=== PATIENT | male | born 1975 | race Caucasian/White ===

== ENCOUNTER 2021-10-25 10:08 | Emergency (ER) | payer OTHER, SELFPAY ==
--- NOTE | 2021-10-25 10:18 | ED.URI ---
HPI - URI/Sore Throat General Chief Complaint: Upper Respiratory Infection Stated Complaint: Cough Time Seen by Provider: 10/25/21 10:27 Source: patient, RN notes reviewed and old records reviewed Mode of arrival: ambulatory Limitations: no limitations History of Present Illness HPI Narrative: 46 year old male who presents to [facility] care with complaints of sore throat, cough with green yellow sputum, low grade fevers for the past 5 days. patient states that he noticed some wheezing last night when he laid down to go to bed and his throat felt like it was constricted denies any shortness of breath, no tachypnea or accessory muscle use noted with patient able to speak in full sentences without difficulty. Patient states that he has not taken anything OTC for his symptoms. Patient reports that he has had COVID vaccinations and Booster and also flu shot this year and he did have COVID in April of 2021..Patient states that he took home COVID test on Thursday and this morning with results negative. MD elicited complaint: cough and sore throat Onset (ago): day(s) (5) Consistency: constant Description of mucous: yellow and green Related Data Allergies Allergy/AdvReac Type Severity Reaction Status Date / Time No Known Allergies Allergy Unverified 08/30/18 15:25 Review of Systems Review of Systems: CONSTITUTIONAL: Reports low grade fever fever, no chills, or sweats. EYES: Denies visual changes, redness, or discharge. ENT: Positive for clear rhinorrhea, congestion, positive for sore throat, no otalgia. CARDIOVASCULAR: Denies chest pain, palpitations, or edema. RESPIRATORY: Positive for cough denies dyspnea. GASTROINTESTINAL: Denies abdominal pain, nausea, vomiting, or diarrhea. GENITOURINARY: Denies dysuria or hematuria. SKIN: Denies rash or itching. MUSCULOSKELETAL: Denies back pain, joint pain, or myalgia. NEUROLOGIC: Denies headache, numbness, or weakness. PSYCHIATRIC: Denies anxiety or depression. All systems reviewed & are unremarkable except as noted in HPI and below PMFSH Past Medical History Medical History (Updated 10/25/21 @ 11:21 by Clementine Lopez NP) COVID-21 April 2021 Surgical History Surgical History (Updated 10/25/21 @ 11:22 by Clementine Lopez NP) No history of previous surgery Family History Family History (Updated 10/25/21 @ 11:23 by Clementine Lopez NP) Father Heart disease Diabetes mellitus Malignant neoplasm of prostate Grandparent Heart disease Malignant neoplasm of prostate Mother Brain aneurysm Social History Social History (Updated 10/25/21 @ 11:22 by Clementine Lopez NP) Smoking status: Never smoker Alcohol intake: current Alcohol use details: rare social Substance use: never Living arrangements: with family Gender identity (if verbalized by the patient): Male Comments At time of signature, agree with nursing past medical, surgical, social and family history. There is no relevant family history pertinent to the presenting complaint Exam Narrative: GENERAL: Well-appearing, well-nourished, pale and in no acute distress. HEAD: Normocephalic, atraumatic. EYES: PERRLA and EOMI. ENT: Nares with mild redness clear rhinorrhea no epistaxis. Mucous membranes moist.TM's normal with good light reflex, throat red with no lesions or exudates no acute tonsil swelling uvula red but midline NECK: Supple. no lymphadenopathy CHEST: Clear to auscultation. No respiratory distress. cough which is productive of yellow green mucous, SAO2 99% on room air HEART: Regular rate and rhythm. No murmur heard. Normal peripheral pulses. ABDOMEN: Soft, nontender, nondistended, normal active bowel sounds. EXTREMITIES: Normal range of motion. No edema. SKIN: Warm, dry, no rash. NEURO: No focal deficits. Alert and oriented x3. Course Course Level of Care: Express Care Visit MDM - URI/Sore Throat Differential Diagnosis Differential diagnosis: Likely upper respiratory infection, sin
[2021-10-25 10:33] VITALS: BP 163/98; PULSE 88; RESP 16; TEMP 36.6; O2SAT 99
== END 2021-10-25 10:47 | disposition home or self-care (01) ==
PROVIDERS: Emergency Provider Registered Nurse
DX: J06.9 Acute upper respiratory infection, unspecified (principal); R05.9 Cough, unspecified; Z86.16 Personal history of COVID-19
CPT/HCPCS: 87081; 87880; 99213; G0463

== ENCOUNTER 2023-07-29 11:41 | Emergency (ER) | payer OTHER, SELFPAY ==
--- NOTE | ~2023-07-29 | XR_ITS ---
XR thoracic spine 3V 07/29/2023 12:29 Indication: Back pain for 5 days Procedure: 3 views thoracic spine Comparison: No prior studies for comparison. Findings: No paraspinal soft tissue abnormality. Vertebral body heights are maintained. No fracture o r traumatic malalignment. Surrounding osseous structures are unremarkable. Impression: 1: No acute abnormality of the thoracic spine. Reviewed, dictated and finalized at location B. O EQUIPMENT INSTALLER Impression: 1: No acute abnormality of the thoracic spine.
[2023-07-29 11:50] VITALS: BP 152/106; PULSE 99; RESP 16; TEMP 36.7; O2SAT 99
--- NOTE | 2023-07-29 12:10 | ED.BACK ---
HPI - Back Pain/Injury General Chief Complaint: Back Pain/Injury Stated Complaint: BACK PAIN Time Seen by Provider: 07/29/23 12:10 Source: patient Mode of arrival: ambulatory Limitations: no limitations History of Present Illness HPI Narrative: 48 y/o male presented for c/o mid back pain, onset 5 days. Denies injury or over use. States he went ice skating about one week prior to onset, and cut up boxes and felt like his back and legs were tight. Pt is able to bend over and touch toes without any increase in pain or difficulty. Pain is described as a constant ache, but has intermittent spasms. Denies pain radiating into the hips or legs, numbness, tingling, weakness of the lower extremities, or change in gait, saddle paresthesia or loss of bowel or bladder. Has improvement when taking ibuprofen. Related Data Allergies Allergy/AdvReac Type Severity Reaction Status Date / Time amoxicillin AdvReac Mild stomach Verified 07/29/23 12:00 upset Review of Systems Review of Systems: CONSTITUTIONAL: Denies body aches, fever, chills EYES: Denies visual changes CARDIOVASCULAR: Denies chest pain, palpitations, or edema. RESPIRATORY: Denies cough or dyspnea. GASTROINTESTINAL: Denies abdominal pain, nausea, vomiting, or diarrhea. SKIN: Denies rash, itching, or wounds. MUSCULOSKELETAL: reports back pain NEUROLOGIC: Denies headache, numbness, tingling, or weakness. All systems reviewed & are unremarkable except as noted in HPI and below PMFSH Past Medical History Medical History COVID-21 April 2021 Insomnia Torn ligament left knee Surgical History Surgical History No history of previous surgery Family History Family History Father Heart disease Diabetes mellitus Malignant neoplasm of prostate Anxiety Grandparent Heart disease Malignant neoplasm of prostate Mother Brain aneurysm Sibling Anxiety Social History Social History Smoking status: Never smoker Alcohol intake: current Alcohol use details: rare social Substance use: never Living arrangements: with family Gender identity (if verbalized by the patient): Male Comments At time of signature, I have reviewed and agree with nursing past medical, surgical, social and family history unless otherwise noted. Please see nursing chart for further information. There is no relevant family history pertinent to the presenting complaint Exam Narrative: GENERAL: Well-appearing NECK: Supple. full ROM CHEST: Speaks in full sentences. No respiratory distress. HEART: Regular rate and rhythm. Normal and equal peripheral pulses. MUSC: Minimal paraspinal tenderness to approx T10-12 area. No Vertebral point tenderness. BLEs with normal strength and sensation, normal range of motion endorses pain with movement. No open wounds or obvious deformity; alignment normal, pulse palpable and equal bilaterally, skin warm, dry, pink. Capillary refill less than 3 seconds. Gait steady. SKIN: Warm, dry, no rash. NEURO: Alert and oriented x3. Course Course Emergency Course: Patient is aware of diagnosis, understands and agrees to treatment plan. Anticipatory guidance given. Patient agrees to follow-up as directed and is aware of reasons to seek care at the emergency department. Portions of this record may have been created with voice recognition software Level of Care: Express Care Visit Vital Signs Vital signs: Vital Signs Temperature 98.1 F 07/29/23 11:50 Pulse Rate 99 07/29/23 11:50 Respiratory Rate 16 07/29/23 11:50 Blood Pressure 152/106 H 07/29/23 11:50 Pulse Oximetry 99 07/29/23 11:50 Oxygen Delivery Room Air 07/29/23 11:50 Temperature 98.1 F 07/29/23 11:50 Pulse Rate 99 07/29/23 11:50 Respira
== END 2023-07-29 12:54 | disposition home or self-care (01) ==
PROVIDERS: Emergency Provider Nurse Practitioner Family; PCP Internal Medicine
DX: S29.012A Strain of muscle and tendon of back wall of thorax, initial encounter (principal); X58.XXXA Exposure to other specified factors, initial encounter; Z86.16 Personal history of COVID-19
CPT/HCPCS: 72072; 99213; G0463

== ENCOUNTER 2023-08-06 08:53 | Outpatient (CLI) | payer OTHER, SELFPAY ==
[2023-08-06 18:49] LABS: Basophils Absolute Auto 0.1 K/mm3 (0.0-0.1); Basophils Percent Auto 1.1 % (0.2-1.2); Eosinophils Absolute Auto 0.1 K/mm3 (0-0.3); Hematocrit 50.4 % (42.0-52.0); Hemoglobin 16.1 g/dL (14.0-18.0); Immature Granulocyte Absolute 0.03 K/mm3 (0.00-0.031); Immature Granulocyte Percent A 0.5 % (0-0.5); Lymphocytes Percent Auto 25.8 % (18.3-44.2); Mean Corpuscular HGB Conc 31.9 g/dl (32-36); Mean Corpuscular Hemoglobin 29.1 pg (26-34); Mean Corpuscular Volume 91.1 fl (80-100); Mean Platelet Volume 11.4 fl (7.4-10.4); Monocytes Absolute Auto 0.7 K/mm3 (0.1-0.6); Neutrophils Percent Auto 60.6 % (45.5-73.1); Platelet Count Result 307 k/mm3 (150-375); Red Blood Count 5.53 M/mm3 (4.6-6.20); Red Cell Distribution Width 12.2 % (11.5-14.5); White Blood Count 6.6 K/mm3 (4.5-10.0)
[2023-08-06 21:07] LABS: Alanine Aminotransferase 18 U/L (6-50); Albumin Level 4.8 g/dL (3.5-5.1); Alkaline Phosphatase 89 U/L (38-126); Anion Gap 12 mmol/L (8-16); Aspartate Amino Transferase 40 U/L (17-59); Bilirubin,Total 0.8 mg/dL (0.2-1.3); Blood Urea Nitrogen 16 mg/dL (9-20); Calcium 9.5 mg/dL (8.4-10.2); Carbon Dioxide 27 mmol/L (22-30); Chloride 100 mmol/L (98-107); Cholesterol 249 mg/dL (0-200); Estimated Glomerular Filt Rate > 60; Glucose 70 mg/dL (65-110); HDL Direct 49 mg/dL; Potassium 4.5 mmol/L (3.4-5.0); Sodium 139 mmol/L (137-145); Triglycerides 165 mg/dL (<150)
[2023-08-06 21:18] LABS: LDL Cholesterol Direct 130 mg/dL
== END 2023-08-06 08:54 | disposition home or self-care (01) ==
LOC: ANHGOSHLAB 08:55
PROVIDERS: PCP Internal Medicine; Visit Provider Nurse Practitioner
DX: Z13.220 Encounter for screening for lipoid disorders (principal); F41.9 Anxiety disorder, unspecified; Z13.29 Encounter for screening for other suspected endocrine disorder
CPT/HCPCS: 36415; 80053; 80061; 84443; 85025

== ENCOUNTER 2024-01-13 12:48 | Outpatient (CLI) | payer OTHER, SELFPAY ==
--- NOTE | ~2024-01-13 | US_ITS ---
Left soft tissue neck ultrasound (Doppler ultrasound interrogation techniques used as needed for this exam.) Ordering provider: Yara Dorado NP History: . M54.2 - Cervicalgia . Comparison: None. FINDINGS/impression: No masses seen in the area of concern. Reviewed, dictated and finalized at location A.
== END 2024-01-13 12:49 ==
LOC: GOSHIMG 12:52
PROVIDERS: PCP Nurse Practitioner; Visit Provider Nurse Practitioner
DX: M54.2 Cervicalgia (principal)
CPT/HCPCS: 76536

== ENCOUNTER 2024-02-10 00:29 | Day surgery (SDC) | payer OTHER, SELFPAY ==
[2024-02-09 11:34] VITALS: BMI 25.2
[2024-02-10 07:39] VITALS: BP 145/94; PULSE 71; RESP 16; TEMP 36.1; O2SAT 97; BMI 24.5
[2024-02-10] MEDS: LACTATED RINGERS 1,000 ML 150 ML IV CONT (07:51)
--- NOTE | 2024-02-10 08:35 | P.PNAN_ITS ---
Anes - Initial Pre Proc Eval Procedure: Operation Date: 02/10/24 09:00 Proposed Procedures p Esophagogastroduodenoscopy - Rosalino Corea MD Date/Time: 02/10/24 08:35 Surgeon: Rosalino Corea MD Pre Op Diagnosis: GERD Patient Data Age: 48 Gender: M Height: 1.78 m Weight: 77.6 kg Last Vital Signs Temp 97 F L 02/10/24 07:39 Pulse 71 02/10/24 07:39 Resp 16 02/10/24 07:39 BP 145/94 H 02/10/24 07:39 Pulse Ox 97 02/10/24 07:39 O2 Del Method Room Air 02/10/24 07:39 Allergies Allergy/AdvReac Type Severity Reaction Status Date / Time amoxicillin AdvReac Mild stomach Verified 02/10/24 07:38 upset Home Medications Medication Instructions Recorded Confirmed Type alprazolam 0.25 mg tablet (Xanax) 0.25 mg PO DAILY PRN anxiety #15 08/11/23 02/10/24 Rx tabs Patient hx anesthesia problems: none Family hx anesthesia problems: none Results Review: All pre-operative results and documents have been reviewed as part of the pre- operative evaluation. [facility] Past Medical History Medical History COVID-21 April 2021 Hyperlipidemia Insomnia Torn ligament left knee Surgical History Surgical History No history of previous surgery Family History Family History Father Heart disease Diabetes mellitus Malignant neoplasm of prostate Anxiety Grandparent Heart disease Malignant neoplasm of prostate Mother Brain aneurysm Sibling Anxiety Social History Social History Smoking status: Never smoker Alcohol intake: current Alcohol use details: rare social Substance use: never Lack of Transportation: No Lack of Food: Never True Current Housing: I Have Housing Concerned About Future Housing: No Difficulty Paying Gas/Electric Bills: No Difficulty Paying for Meds: No Currently Unemployed: No Education: Bachelor's Degree Difficulty w/ Childcare or Family Care: No Living arrangements: with family Gender identity (if verbalized by the patient): Male Spiritual care concerns: No Anes - Eval Final PreProcedure Day of Procedure 02/10/24 08:35 Patient weight: normal Heart: regular rate and rhythm Lungs: clear to auscultation Airway: Mallampati scale class II Neurological: alert and oriented Last oral intake: >/= 8 hours ASA classification: II Emergent: no Anesthetic plan: proceed Anesthesia type and monitoring: general GIVS and standard monitoring Results Review: All pre-operative results and documents have been reviewed as part of the pre- operative evaluation. Informed Consent: The patient's anesthetic plan and its attendant risks and benefits were discussed with the patient/family/POA. Questions were solicited and answers provided to the satisfaction of the patient/family/POA.
--- NOTE | 2024-02-10 08:42 | PM.HPGS ---
History of Present Illness History of Present Illness Consent: Risks, benefits, and alternatives have been discussed and questions answered. Patient agrees to proceed with procedure. Chief complaint: GERD Narrative: Robby Weems is a 48 year old male with gerd and indigestion for 1 month, just recently started omeprazole with some help. Also bloating for longer, never had egd Review of Systems Review of Systems: All systems reviewed & are unremarkable except as noted in HPI and below PMFSH Past Medical History Medical History COVID-21 April 2021 Hyperlipidemia Insomnia Torn ligament left knee Surgical History Surgical History No history of previous surgery Family History Family History Father Heart disease Diabetes mellitus Malignant neoplasm of prostate Anxiety Grandparent Heart disease Malignant neoplasm of prostate Mother Brain aneurysm Sibling Anxiety Social History Social History Smoking status: Never smoker Alcohol intake: current Alcohol use details: rare social Substance use: never Lack of Transportation: No Lack of Food: Never True Current Housing: I Have Housing Concerned About Future Housing: No Difficulty Paying Gas/Electric Bills: No Difficulty Paying for Meds: No Currently Unemployed: No Education: Bachelor's Degree Difficulty w/ Childcare or Family Care: No Living arrangements: with family Gender identity (if verbalized by the patient): Male Spiritual care concerns: No Meds Home Medications and Allergies Home Medications Medication Instructions Recorded Confirmed Type alprazolam 0.25 mg tablet (Xanax) 0.25 mg PO DAILY PRN anxiety #15 08/11/23 02/10/24 Rx tabs Allergies Allergy/AdvReac Type Severity Reaction Status Date / Time amoxicillin AdvReac Mild stomach Verified 02/10/24 07:38 upset Vital Signs Vital Signs - 24 hr 02/10/24 07:39 Temperature 97 F L Pulse Rate 71 Respiratory Rate 16 Blood Pressure 145/94 H Pulse Oximetry 97 Oxygen Delivery Room Air Exam Const: General: comfortable and no acute distress HENMT: Face/Nose/Sinus: Normal nares present Eyes: General: appearance normal, both eyes and all related structures Neck: Neck: no JVD Resp: Auscultation: clear to auscultation bilaterally Cardio: Rate: regular rate Rhythm: regular rhythm GI: Inspection: non-distended GI Palp: Yes Soft to palpation Skin: General skin exam: normal color Neuro: General: gait normal Speech: normal speech Extrem: General: normal to inspection Psych: Mental Status: mental status grossly normal Assessment and Plan Assessment and plan (1) GERD (gastroesophageal reflux disease): Qualifiers: Esophagitis presence: without esophagitis Qualified Code(s): K21.9 - Gastro-esophageal reflux disease without esophagitis Code(s): K21.9 - Gastro-esophageal reflux disease without esophagitis Status: Acute Assessment and Plan: egd with bx
[2024-02-10] MEDS: BENZOCAINE (*SP) 60 ML SPRAY CAN (HURRICAINE) 1 SPRAY MUCOUS MEM (08:48)
[2024-02-10 08:55] VITALS: BP 109/74; PULSE 61; RESP 23; O2SAT 97
[2024-02-10 09:05] VITALS: BP 142/100; PULSE 73; RESP 14; O2SAT 99
[2024-02-10 09:15] VITALS: BP 131/95; PULSE 70; RESP 16; O2SAT 99
== END 2024-02-10 09:30 | disposition home or self-care (01) ==
PROVIDERS: PCP Nurse Practitioner; Referring Provider Clinical Nurse Specialist; Visit Provider Internal Medicine Gastroenterology
PROC: 0DJ08ZZ Inspection of Upper Intestinal Tract, Via Natural or Artificial Opening Endoscopic (ICD-10-PCS; CPT 43235; principal; 2024-02-10 09:00)
DX: K21.9 Gastro-esophageal reflux disease without esophagitis (principal)
CPT/HCPCS: 43239; 88305; J2704; J7120

== ENCOUNTER 2024-02-18 16:02 | Outpatient (CLI) | payer OTHER, SELFPAY ==
[2024-02-18 20:21] LABS: Alanine Aminotransferase 32 U/L (6-50); Albumin Level 4.5 g/dL (3.5-5.1); Alkaline Phosphatase 84 U/L (38-126); Aspartate Amino Transferase 38 U/L (17-59); Bilirubin,Total 0.7 mg/dL (0.2-1.3); Lipase 101 U/L (23-300)
== END 2024-02-18 16:03 | disposition home or self-care (01) ==
LOC: ANHGOSHLAB 16:04
PROVIDERS: PCP Nurse Practitioner; Visit Provider Nurse Practitioner Family
DX: R10.13 Epigastric pain (principal); R63.4 Abnormal weight loss; R19.5 Other fecal abnormalities
CPT/HCPCS: 36415; 80076; 83690

== ENCOUNTER 2024-03-21 07:26 | Outpatient (CLI) | payer OTHER, SELFPAY ==
--- NOTE | ~2024-03-21 | XR_ITS ---
EXAMINATION: XR barium swallow w SBFT DATE: 03/21/2024 11:09 INDICATION: Epigastric pain TECHNIQUE: The patient drank thick barium, gas-producing crystals, and thin barium. Conventional supi ne abdomen radiographs and fluoroscopic spot radiographs of the hypopharynx, esophagus, stomach, and proximal small bowel were obtained. Additional overhead radiographs were obtained during the transit through the small bowel. Spot fluoroscopic images of the small bowel were obtained upon contrast yo gabe the cecum. Fluoroscopy exposure time was 2.7 minutes. Total DAP was 17.968 mGycm^2 COMPARISON: None. FINDINGS: The pharynx is symmetric and without evidence of mass lesion or mucosal irregularity. The esophagus i s normal without mass or stricture. Esophageal motility is normal. There is no hiatal hernia. There w as no gastroesophageal reflux with provocative maneuvers. The stomach and proximal small bowel are no rmal. Transit time from the stomach to proximal colon was approximately 15-30 minutes. There is normal natalee dia and mucosal fold pattern throughout the small bowel. Terminal ileum is normal. No tethering or abnormal mass effect observed upon the small bowel with real-time fluoroscopy. IMPRESSION: 1. Normal esophagram and small bowel follow-through. Reviewed, dictated and finalized at location A.
--- NOTE | ~2024-03-21 | US_ITS ---
EXAMINATION: US abdomen limited DATE: 03/21/2024 08:42 INDICATION: Epigastric pain TECHNIQUE: Multiple grayscale and Doppler ultrasound images of the abdomen were obtained. COMPARISON: None FINDINGS: The pancreatic head and body are normal in appearance. The pancreatic tail is not visualized. The vi sualized mid aorta and proximal to mid inferior vena cava are normal. Liver has normal echogenicity a nd contour, with a smooth surface. No liver lesion identified. No intrahepatic biliary duct dilation suspected. Portal venous flow was seen in the hepatopetal, normal direction and has normal Doppler wa veform. The gallbladder is normal in appearance. There is no cholelithiasis. The common bile duct me asures 4 mm, which is normal. Sonographic Sr sign was reported as negative by the carbide tool maker. IMPRESSION: 1. Normal right upper quadrant ultrasound. Reviewed, dictated and finalized at location A.
== END 2024-03-21 07:27 | disposition home or self-care (01) ==
PROVIDERS: PCP Nurse Practitioner; Visit Provider Nurse Practitioner Family
DX: K21.9 Gastro-esophageal reflux disease without esophagitis (principal); R10.13 Epigastric pain; R19.5 Other fecal abnormalities; R63.4 Abnormal weight loss
CPT/HCPCS: 74240; 76705

== ENCOUNTER 2024-04-20 07:51 | Outpatient (CLI) | payer OTHER, SELFPAY ==
--- NOTE | ~2024-04-20 | NM_ITS ---
EXAMINATION: NM hepatobiliary wo pharm DATE: 04/20/2024 10:24 INDICATION: Right upper quadrant and epigastric abdominal pain. COMPARISON: None. TECHNIQUE: 4.9 mCi Tc-99m mebrofenin (Choletec) was administered intravenously. Scintigraphic images of the abdomen were obtained for one hour. Then, the patient drank 8 oz Ensure, and imaging was cont inued for 60 minutes. FINDINGS: There is normal clearance of radiotracer from the blood pool. There is homogeneous tracer u ptake by the liver. Activity progresses to the bowel and gallbladder. Gallbladder ejection fraction (GBEF) was 15%. Note that with this technique, normal GBEF >= 33%. IMPRESSION: 1. Low gallbladder ejection fraction, consistent with gallbladder dysfunction and/or chronic cholecy stitis. Reviewed, dictated and finalized at location A. IMPRESSION: 1. Low gallbladder ejection fraction, consistent with gallbladder dysfunction and/or chronic cholecystitis.
== END 2024-04-20 07:52 | disposition home or self-care (01) ==
PROVIDERS: PCP Nurse Practitioner; Visit Provider Nurse Practitioner Family
DX: R10.13 Epigastric pain (principal); R10.11 Right upper quadrant pain; R11.0 Nausea
CPT/HCPCS: 78226; A9537

== ENCOUNTER 2024-04-25 15:14 | Outpatient (CLI) | payer OTHER, SELFPAY ==
[2024-04-25 15:50] LABS: Alanine Aminotransferase 22 U/L (6-50); Albumin Level 4.6 g/dL (3.5-5.1); Alkaline Phosphatase 79 U/L (38-126); Amylase 68 U/L (30-110); Aspartate Amino Transferase 28 U/L (17-59); Bilirubin,Total 0.8 mg/dL (0.2-1.3); Lipase 104 U/L (23-300)
== END 2024-04-25 15:15 | disposition home or self-care (01) ==
LOC: ANHLAB 15:16
PROVIDERS: PCP Nurse Practitioner; Visit Provider Surgery
DX: Z01.812 Encounter for preprocedural laboratory examination (principal); K81.1 Chronic cholecystitis
CPT/HCPCS: 36415; 80076; 82150; 83690

== ENCOUNTER 2024-05-04 00:33 | Day surgery (SDC) | payer OTHER, SELFPAY ==
[2024-04-25 12:20] VITALS: BMI 24.8
--- NOTE | 2024-04-25 12:25 | PC.NURSE ---
Report to the Outpatient Waiting Room, entrance under the green pavilion located off [facility], at time _0900_ on date _[id number]_. Planned Procedure Time: _1100_.? Time changes happen often and if your time is changed the preop area will call you the afternoon before. - You and your visitor will be asked to self-screen and do not enter if you have any COVID symptoms. Please call surgeon if you need to reschedule. - A mask is optional within the hospital at this time. Patients may have clear liquids (water, carbonated beverages, clear teas, apple juice) until 3 hours prior to surgery with a maximum of 20 ounces. - No food from midnight until time of surgery and no smoking Take only the following medications with a SIP of water on the morning of surgery: ___Alprazolam if needed. DO NOT STOP ANY OF YOUR OTHER PRESCRIPTION MEDICATIONS PRIOR TO SURGERY EXCEPT THE FOLLOWING Medications to discontinue per physician None Please no make-up, nail pitcairn islander, hairspray, perfume, deodorant, or body powder the day of surgery.? No jewelry (including any body piercings) or valuables the day of surgery, leave them at home.? Please take a shower or bath the night before, or the morning of, surgery with an antibacterial soap.? Wear comfortable, loose fitting clothing.? . - Jewelry must be removed prior to entering the operating room.? Rings and piercings that are not removed may be cut off. - The hospital will not accept responsibility for valuables.? - Please leave all valuables, including medications, at home the day of surgery. If you are going home after surgery, a licensed jitney driver must drive you home.? - NO public transportation without another adult if you receive anesthesia. - We recommend that an adult stay with you for 24 hours following discharge. - We also recommend that you do not drive, make important decision, drink alcoholic beverages, or take any drugs that were not prescribed by your health care provider for at least 24 hours after your discharge time. Follow any additional instructions given to you from your surgeon. Telephone instructions given to __David__and asked if any additional questions and then verbalized understanding. Patient advised to call surgeon office or pre surgery nurse liaison [phone] if any additional questions.
[2024-05-04] VITALS (9 sets, daily range): BP systolic 122–167; BP diastolic 71–96; PULSE 47–67; RESP 10–20; TEMP 36.2–36.6; O2SAT 97–100
[2024-05-04] MEDS: LACTATED RINGERS 1,000 ML 30 ML IV CONT ×2 (09:30→13:06)
[2024-05-04 09:34] LABS: Basophils Percent Auto 0.6 % (0.2-1.2); Eosinophils Absolute Auto 0.1 K/mm3 (0-0.3); Eosinophils Percent Auto 1.7 % (0-4.4); Hemoglobin 16.3 g/dL (14.0-18.0); Immature Granulocyte Absolute 0.01 K/mm3 (0.00-0.031); Immature Granulocyte Percent A 0.1 % (0-0.5); Lymphocytes Absolute Auto 2.01 K/mm3 (0.9-3.2); Mean Corpuscular HGB Conc 33.3 g/dl (32-36); Mean Corpuscular Hemoglobin 29.4 pg (26-34); Mean Corpuscular Volume 88.4 fl (80-100); Mean Platelet Volume 11.2 fl (7.4-10.4); Monocytes Absolute Auto 0.7 K/mm3 (0.1-0.6); Monocytes Percent Auto 9.7 % (2.6-8.5); Neutrophils Absolute Auto 4.3 K/mm3 (1.3-6.7); Neutrophils Percent Auto 59.9 % (45.5-73.1); Platelet Count Result 293 k/mm3 (150-375); Red Blood Count 5.54 M/mm3 (4.6-6.20); Red Cell Distribution Width 11.8 % (11.5-14.5); White Blood Count 7.2 K/mm3 (4.5-10.0)
[2024-05-04] MEDS: ACETAMINOPHEN 500 MG TABLET 1000 MG PO (09:51)
[2024-05-04] MEDS: KETOROLAC 15 MG/ML VIAL (*BKC) IV PUSH (09:51)
--- NOTE | 2024-05-04 10:05 | WPDANESEPPF ---
Anes - Initial Pre Proc Eval Procedure: Operation Date: 05/04/24 11:00 Proposed Procedures p Laparoscopic Cholecystectomy - Andre Green MD Date/Time: 05/04/24 10:05 Surgeon: Andre Green MD Pre Op Diagnosis: acalculous chronic cholecystitis Patient Data Age: 48 Gender: M Height: 1.78 m Weight: 78.6 kg Allergies Allergy/AdvReac Type Severity Reaction Status Date / Time amoxicillin AdvReac Mild stomach Verified 05/04/24 09:45 upset Home Medications Medication Instructions Recorded Confirmed Type omeprazole 40 mg capsule,delayed 40 mg PO BID #60 caps 04/01/24 05/04/24 Rx release alprazolam 0.25 mg tablet 0.25 mg PO TID PRN Anxiety 04/25/24 05/04/24 History Laboratory Tests 05/04/24 09:29 WBC 7.2 K/mm3 (4.5-10.0) RBC 5.54 M/mm3 (4.6-6.20) Hgb 16.3 g/dL (14.0-18.0) Hct 49.0 % (42.0-52.0) MCV 88.4 fl (80-100) MCH 29.4 pg (26-34) MCHC 33.3 g/dl (32-36) RDW 11.8 % (11.5-14.5) Plt Count 293 k/mm3 (150-375) MPV 11.2 H fl (7.4-10.4) Immature Gran % (Auto) 0.1 % (0-0.5) Neut % (Auto) 59.9 % (45.5-73.1) Lymph % (Auto) 28.0 % (18.3-44.2) Candler % (Auto) 9.7 H % (2.6-8.5) Eos % (Auto) 1.7 % (0-4.4) Baso % (Auto) 0.6 % (0.2-1.2) Lymph # (Auto) 2.01 K/mm3 (0.9-3.2) Candler # (Auto) 0.7 H K/mm3 (0.1-0.6) Eos # (Auto) 0.1 K/mm3 (0-0.3) Baso # (Auto) 0.0 K/mm3 (0.0-0.1) Abs Immat Gran (auto) 0.01 K/mm3 (0.00-0.031) Absolute Neuts (auto) 4.3 K/mm3 (1.3-6.7) Absolute Nucleated RBC 0.000 K/mm3 (0.0-0.012) Nucleated RBC % 0.0 % (0.0-0.2) Patient hx anesthesia problems: none Family hx anesthesia problems: none Results Review: All pre-operative results and documents have been reviewed as part of the pre-operative evaluation. [facility] Past Medical History Medical History Biliary dyskinesia COVID-21 April 2021 Hyperlipidemia Insomnia Torn ligament left knee Surgical History Surgical History History of esophagogastroduodenoscopy (EGD) Family History Family History Father Heart disease Diabetes mellitus Malignant neoplasm of prostate Anxiety Grandparent Heart disease Malignant neoplasm of prostate Mother Brain aneurysm Sibling Anxiety Social History Social History Smoking status: Never smoker Alcohol intake: current Alcohol use details: rare social Substance use: never Lack of Transportation: No Lack of Food: Never True Current Housing: I Have Housing Concerned About Future Housing: No Difficulty Paying Gas/Electric Bills: No Difficulty Paying for Meds: No Currently Unemployed: No Education: Bachelor's Degree Difficulty w/ Childcare or Family Care: No Living arrangements: with family Gender identity (if verbalized by the patient): Male Spiritual care concerns: No Anes - Eval Final PreProcedure Day of Procedure 05/04/24 10:05 Patient weight: normal Heart: regular rate and rhythm Lungs: clear to auscultation Airway: Mallampati scale class II Neurological: alert and oriented Last oral intake: >/= 8 hours ASA classification: II Emergent: no Anesthetic plan: proceed Anesthesia type and monitoring: general ETT and standard monitoring Results Review: All pre-operative results and documents have been reviewed as part of the pre-operative evaluation. Informed Consent: The patient's anesthetic plan and its attendant risks and benefits were discussed with the patient/family/POA. Questions were solicited and answers provided to the satisfaction of the patient/family/POA.
--- NOTE | 2024-05-04 10:50 | WPDHPUPDATE1 ---
History and Physical Update Update Date/Time: 05/04/24 10:50 History and Physical has been reviewed, including an updated exam of the patient. There are NO changes in the patient's condition. Risks, benefits, and alternatives have been discussed and questions answered. Patient agrees to proceed with procedure.
[2024-05-04] MEDS: ceFAZolin 2 GM/D5W 50 ML 2 GM/50 ML BAG IVPB (11:22)
[2024-05-04] MEDS: BUPIVACAINE/EPINEPHRINE 0.5% 10 ML VIAL 30 ML INFILTRATE (11:51)
--- NOTE | 2024-05-04 12:34 | P.OP_ITS ---
Procedure Note - Detailed Date of Procedure 05/04/24 Pre-op Diagnosis acalculous chronic cholecystitis Post-op Diagnosis Same Procedure Performed Laparoscopic cholecystectomy Surgeon Andre Green MD [employer] Olga LAMAR Anesthesia General and Local Indications Patient has had a a 48-year-old man who has a longstanding history of postprandial epigastric abdominal pain associated with nausea. This pain is much worse with fatty meals. He had an ultrasound of the gallbladder which was negative. HIDA scan showed a low ejection fraction of only 15%. He is taken to surgery now for acalculous chronic cholecystitis and laparoscopic cholecystectomy. Findings Chronic inflammation, no stones, no biliary ductal dilatation, normal liver Description of Procedure Patient was taken to surgery and induced into general anesthesia. The abdomen is prepped and draped. Trocars were placed in usual fashion use applied Medical optical trocars and a 5 mm camera. Gallbladder was decompressed with a laparoscopic aspirator. The cholecystotomy was closed with a Vicryl endoloop. The gallbladder was then retracted anterosuperiorly. Traction was placed on the infundibulum and then dissection was carried out in the cholecystohepatic triangle. There was inflammation here but it was not severe. The cystic duct and cystic artery were carefully dissected and delineated. The gallbladder was dissected off the liver over its lower 3rd. Critical view was achieved. I then securely clipped and divided the cystic duct and cystic artery. Gallbladder retraction was continued and the gallbladder was carefully dissected completely free from the liver. The gallbladder fossa was inspected and 1 or 2 areas were cauterized for hemostasis. The gallbladder was placed in an Endo-Catch bag and was retrieved through the epigastric trocar site. No stones were palpable in the gallbladder. We replaced the epigastric trocar and then reviewed the gallbladder fossa and right upper quadrant. Some additional cautery was used and then multiple bouts of irrigation and suctioning to ensure there was no bleeding or bile leakage. All looked good. We then evacuated CO2 and removed the trocar sleeves. The fascia at the epigastric trocar site was closed with 0 Vicryl suture. All skin wounds were closed with subcuticular 4-0 Monocryl skin suture. Wounds were dressed with Exofin surgical adhesive. Patient was awakened and taken to recovery in good condition. Sponge and needle counts were correct x2. Estimated Blood Loss -5 Drains No Packing No Pathology Yes (Gallbladder) Complications None Condition Stable Disposition PACU [facility] Billing Surgery - Charge Forward: Surgery Billing (Laparoscopic cholecystectomy)
[2024-05-04] MEDS: fentaNYL CITRATE INJ (*CRX) 100 MCG/2 ML VIAL 25 MCG IV PUSH (13:06)
[2024-05-04] MEDS: ONDANSETRON INJ 4 MG/2 ML VIAL IV PUSH (14:16)
== END 2024-05-04 14:40 | disposition home or self-care (01) ==
PROVIDERS: PCP Nurse Practitioner; Visit Provider Surgery
PROC: 0FT44ZZ Resection of Gallbladder, Percutaneous Endoscopic Approach (ICD-10-PCS; CPT 47562; principal; 2024-05-04 11:00)
DX: K81.1 Chronic cholecystitis (principal); G89.18 Other acute postprocedural pain; E78.5 Hyperlipidemia, unspecified; G47.00 Insomnia, unspecified; K82.8 Other specified diseases of gallbladder; Z98.890 Other specified postprocedural states; Z80.42 Family history of malignant neoplasm of prostate; Z82.49 Family history of ischemic heart disease and other diseases of the circulatory system
CPT/HCPCS: 47562; 36415; 80076; 82150; 83690; 85025; 88304; A9270; J0690; J1100; J1171; J1596; J1885; J2003; J2250; J2405; J2704; J2710; J3010; J7120

== ENCOUNTER 2025-04-07 03:10 | Day surgery (SDC) | payer BC, SELFPAY ==
[2025-04-04 11:06] VITALS: BMI 25.9
--- NOTE | 2025-04-04 11:13 | PC.NURSE ---
Report to the Outpatient Waiting Room, entrance under the green pavilion located off [facility], at time _1100_ on date _[id number]_. Planned Procedure Time: _1pm_.? Time changes happen often and if your time is changed the preop area will call you the afternoon before. - You and your visitor will be asked to self-screen and do not enter if you have any COVID symptoms. Please call surgeon if you need to reschedule. - A mask is optional within the hospital at this time. Patients may have clear liquids (water, carbonated beverages, clear teas, apple juice) until 3 hours prior to surgery with a maximum of 20 ounces. - No food from midnight until time of surgery and no smoking, or chewing tobacco (or any form of nicotine). No chewing gum, candy or mints. Take only the following medications with a SIP of water on the morning of surgery: __None____ DO NOT STOP ANY OF YOUR OTHER PRESCRIPTION MEDICATIONS PRIOR TO SURGERY EXCEPT THE FOLLOWING Hold all vitamins and supplements for 3 days per anesthesiologist. Medications to discontinue per physician Date to take last dose Please no make-up, nail syriac, hairspray, perfume, deodorant, or body powder the day of surgery.? No jewelry (including any body piercings) or valuables the day of surgery, leave them at home.? Please take a shower or bath the night before, or the morning of, surgery with an antibacterial soap.? Wear comfortable, loose fitting clothing.? - Jewelry must be removed prior to entering the operating room.? Rings and piercings that are not removed may be cut off. - The hospital will not accept responsibility for valuables.? - Please leave all valuables, including medications, at home the day of surgery. If you are going home after surgery, a licensed transport driver must drive you home.? - NO public transportation without another adult if you receive anesthesia. - We recommend that an adult stay with you for 24 hours following discharge. - We also recommend that you do not drive, make important decision, drink alcoholic beverages, or take any drugs that were not prescribed by your health care provider for at least 24 hours after your discharge time. Follow any additional instructions given to you from your surgeon. Telephone instructions given to __David___and asked if any additional questions and then verbalized understanding. Patient advised to call surgeon office or pre surgery nurse liaison [phone] if any additional questions.
[2025-04-07] VITALS (8 sets, daily range): BP systolic 105–138; BP diastolic 61–97; PULSE 60–85; RESP 12–20; TEMP 36.1–37; O2SAT 97–100
--- OUTSIDE RECORDS SUMMARY | 2025-04-07 03:14 | XMS_ITS | Clinical Summary ---
Author Organization [facility] [address] Address [address] [place] [id number] Care Team Providers Care Chain Maker Name Role Phone Aston Zhang DO Primary Care Provider [phone] Allergies Active Allergy Reactions Criticality Noted Date Comments Penicillins Nausea & Vomiting Low 01/18/2024 Medications ibuprofen (ADVIL,MOTRIN) 600 mg tablet Take 600 mg by mouth every 6 (six) hours as needed for pain. Active naproxen-diphenh ydramine 220-25 mg tablet Take by mouth. Active Active Problems No known active problems Family History Medical History Relation Name Comments Cancer Neg Hx Diabetes Neg Hx Heart disease Neg Hx Social History Tobacco Use Types Packs/Day Years Used Date Smoking Tobacco: Never Smokeless Tobacco: Never Alcohol Use Standard Drinks/Week Comments Yes 0 (1 standard drink = 0.6 oz pur e alcohol) Personal Safety Answer Date Recorded Have you ever been in or are you currently in a harmful physical or emotional relationship or is someone making you feel afraid or unsafe? Denies 01/18/2024 Sex and Gender Information Value Date Recorded Sex Assigned at Not on file Legal Sex Male 1:57 PM [employer] Gender Identity Not on file Sexual Orientation Not on file Obstetrics History Last Filed Vital Signs Vital Sign Reading Time Taken Comments Blood Pressure 169/99 01/18/2024 5:25 PM CDT Pulse 75 01/18/2024 5:25 PM CDT Temperature 36.6 C (97.9 F) 01/18/2024 2:06 PM CDT Respiratory Rate 18 01/18/2024 5:25 PM CDT Oxygen Saturation 98% 01/18/2024 5:25 PM CDT Inhaled Oxygen Concentration - - Weight 81.6 kg (180 lb) 01/18/2024 2:10 PM CDT Height 177.8 cm (5' 10) 01/18/2024 2:10 PM CDT Body Mass Index 25.83 01/18/2024 2:10 PM CDT Plan of Treatment Health Maintenance Due Date Last Done Comments Colon Cancer Screening-Colonoscopy 1976 Depression Screening 1976 Hepatitis C Screening 1976 Hepatitis B Screening 1994 Regular Well Visit/Exam 18-64 1994 Covid-19 Vaccine ( season) 2024 04/27/2023, 04/16/2022, 07/03/2021, Additional history exists Influenza Vaccine (#1) 2025 04/12/2016, 2011 DTaP/Tdap/Td Vaccine (2 - Td or Tdap) 03/06/2026 03/06/2016 Pneumococcal vaccine <65 Aged Out No longer eligible based on patient's age to complete this topic Insurance [facility] Address: [address] [phone] [facility] Address: [address] [address] Care Teams Chain Maker Relationship Specialty Start Date End Date Aston Zhang DO PCP - General Internal Medicine 01/18/24
[2025-04-07] MEDS: ACETAMINOPHEN 500 MG TABLET 1000 MG PO (12:12)
[2025-04-07] MEDS: LACTATED RINGERS 1,000 ML 30 ML IV CONT (12:15)
[2025-04-07] MEDS: KETOROLAC 15 MG/ML VIAL (*BKC) IV PUSH (12:20)
--- NOTE | 2025-04-07 12:24 | WPDANESEPPF ---
Anes - Initial Pre Proc Eval Procedure: Operation Date: 04/07/25 13:00 Proposed Procedures p Open Umbilical Hernia Repair with Mesh - Adiel Hodgson DO Date/Time: 04/07/25 12:24 Surgeon: Adiel Hodgson DO Pre Op Diagnosis: umbilical hernia 1cm Patient Data Age: 49 Gender: M Height: 1.78 m Weight: 82.1 kg Last Vital Signs Temp 37.0 C 04/07/25 12:04 Pulse 64 04/07/25 12:04 Resp 18 04/07/25 12:04 BP 137/97 H 04/07/25 12:04 Pulse Ox 100 04/07/25 12:04 O2 Del Method Room Air 04/07/25 12:04 Allergies Allergy/AdvReac Type Severity Reaction Status Date / Time amoxicillin AdvReac Mild stomach Verified 04/07/25 12:02 upset Home Medications ?Medication ?Instructions ?Recorded ?Confirmed ?Type No Home Medications 07/18/24 04/04/25 History Patient hx anesthesia problems: none Family hx anesthesia problems: none Results Review: All pre-operative results and documents have been reviewed as part of the pre-operative evaluation. FOR[facility] Past Medical History Medical History (Updated 04/07/25 @ 12:29 by Santhosh Guido DO) Allergies Family history of prostate cancer in father Biliary dyskinesia Hyperlipidemia Insomnia Torn ligament left knee COVID-21 April 2021 Surgical History Surgical History History of cholecystectomy (~05/2024) History of esophagogastroduodenoscopy (EGD) Family History Family History Father Heart disease Diabetes mellitus Malignant neoplasm of prostate Anxiety Grandparent Heart disease Malignant neoplasm of prostate Mother Brain aneurysm Sibling Anxiety Social History Social History Social History: Caffeine-coffee Smoking status: Never smoker Alcohol intake: current Alcohol use details: rare social Substance use: never Substance use type: does not use Current Housing: Decline to Answer Concerned About Future Housing: Decline to Answer Difficulty Paying Gas/Electric Bills: Decline to Answer Difficulty Paying for Meds: Decline to Answer Currently Unemployed: Decline to Answer Education: Decline to Answer Difficulty w/ Childcare or Family Care: Decline to Answer Living arrangements: with family Gender identity (if verbalized by the patient): Male Spiritual care concerns: No Anes - Eval Final PreProcedure Day of Procedure 04/07/25 12:24 Patient weight: overweight Heart: regular rate and rhythm Lungs: clear to auscultation Airway: Mallampati scale class II Neurological: alert and oriented Last oral intake: >/= 8 hours ASA classification: II Emergent: no Anesthetic plan: proceed Anesthesia type and monitoring: general GIVS and standard monitoring Results Review: All pre-operative results and documents have been reviewed as part of the pre-operative evaluation. Informed Consent: The patient's anesthetic plan and its attendant risks and benefits were discussed with the patient/family/POA. Questions were solicited and answers provided to the satisfaction of the patient/family/POA.
--- NOTE | 2025-04-07 13:03 | WPDHPUPDATE1 ---
History and Physical Update Update Date/Time: 04/07/25 13:03 History and Physical has been reviewed, including an updated exam of the patient. There are NO changes in the patient's condition. Risks, benefits, and alternatives have been discussed and questions answered. Patient agrees to proceed with procedure.
[2025-04-07] MEDS: ceFAZolin 2 GM in SODIUM CHLORIDE 0.9% IV 50 ML 100 ML IVPB (13:11)
--- NOTE | 2025-04-07 13:59 | W.PM.PROC2 ---
Procedure Note - Detailed Date of Procedure 04/07/25 Pre-op Diagnosis umbilical hernia Post-op Diagnosis Same (1 cm reducible umbilical hernia) Procedure Performed Open 1 cm umbilical hernia repair with 4.[address] hernia patch Surgeon Adiel Hodgson, DO Anesthesia General and Local (0.5% bupivacaine with epinephrine) Indications This is a 49-year-old man who presented with an umbilical bulge and discomfort that he 1st began experiencing symptoms with about 6 weeks ago. He was told he had a small hernia there about 1 year ago but it was asymptomatic at the time. Recently he had been coughing and noticed a bulge with some discomfort. Discussions were made with the patient about treatment options and decision was made to proceed with open umbilical hernia repair with mesh. Findings Open 1 cm umbilical hernia repair with mesh was performed. The patient was found have a 1 cm reducible umbilical hernia. The hernia sac was freed up from around the umbilical skin and then was reduced back down into the abdominal cavity. No specimens were obtained for pathology. The decision was made to repair this using a 4.[address] hernia patch. Description of Procedure Procedure as well as risks, benefits, and alternatives were discussed with the patient. Written consent was obtained and placed in chart prior to procedure. Patient was brought back to surgical suite. He was placed supine on operating table. He was then intubated by Anesthesia Department. His abdomen was prepped and draped in sterile fashion using chlorhexidine prep. 0.5% bupivacaine with epinephrine was infiltrated locally around the operative area. A 4 cm curvilinear incision was made just inferior to the umbilicus using a 15 blade scalpel. Electrocautery was used for hemostasis and for dissection down through the subcutaneous fat. Hernia sac was encountered and this was carefully freed up from surrounding subcutaneous fat using electrocautery. The hernia sac was freed up all the way down to the level of the fascia. The hernia sac was freed up from the surrounding fascia using electrocautery and then was reduced back down into the abdominal cavity. The umbilical stalk was then lifted off of the fascia with electrocautery. The hernia defect was then measured. This was measuring approximately 1 cm. The decision was made to use a 4.[address] hernia patch. The peritoneum was cleared under the fascia circumferentially around the hernia using blunt dissection and electrocautery. Once a wide enough pocket was created for the mesh, the mesh was then placed within this preperitoneal pocket and laid out flat centered on the hernia defect. The mesh appeared to be sitting in proper position. The mesh was then secured to the fascial edges with the fascial closure using 0 Ethibond [id number] sutures. A total of 3 sutures were placed transversely to approximate the fascia. The repair was inspected and appeared secure. 0.5% bupivacaine with epinephrine was infiltrated around the fascia and subcutaneous space. The umbilical stalk was then reapproximated to the fascia using a 3 0 Vicryl simple interrupted suture. The deep dermis was reapproximated using 3 0 Vicryl simple interrupted sutures, and then the skin was approximated using 4 Monocryl running subcuticular suture. Exofin glue was then applied on top. The patient was then awakened from anesthesia, extubated, and transferred to recovery. Implants 4.[address] hernia patch Estimated Blood Loss 5 Pathology None sent Complications No immediate complications Condition Stable Disposition Same day [facility] Billing Surgery - Charge Forward: Surgery Billing
== END 2025-04-07 16:02 | disposition home or self-care (01) ==
PROVIDERS: PCP Nurse Practitioner; Visit Provider Surgery
PROC: (CPT 49591; principal; 2025-04-07 13:00)
DX: K42.9 Umbilical hernia without obstruction or gangrene (principal)
CPT/HCPCS: 49591; J0690; A9270; C1781; J1100; J1885; J2003; J2250; J2405; J2704; J3010; J7120